=== PATIENT | male | born 1995 | race Caucasian/White ===

== ENCOUNTER 2018-03-11 19:14 | Emergency (ER) | payer BC, OTHER ==
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
[2018-03-11] MEDS ORDERED: Ibuprofen TAB* 600 MG PO ONE (22:33)
[2018-03-11 23:04] VITALS: BP 125/67
== END 2018-03-11 23:02 | disposition home or self-care (01) ==
LOC: ED 19:14
DX: S96.911A Strain of unspecified muscle and tendon at ankle and foot level, right foot, initial encounter (principal); M25.562 Pain in left knee; S80.812A Abrasion, left lower leg, initial encounter; S80.811A Abrasion, right lower leg, initial encounter; V18.0XXA Pedal cycle driver injured in noncollision transport accident in nontraffic accident, initial encounter; Y93.55 Activity, bike riding; Y92.9 Unspecified place or not applicable
CPT/HCPCS: 99282